=== PATIENT | male | born 1990 | race Caucasian/White ===

== ENCOUNTER 2018-11-04 23:06 | Emergency (ER) | payer BC ==
[~2018-11-04 23:06] MED LIST: Sodium Chloride 0.9% 1,000 ML BAG ONE
[2018-11-04 23:34] LABS: #Basophils 0.1 thou/uL (0.0-0.2); #Eosinphils 0.3 thou/uL (0.0-0.7); #Lymphocytes 2.6 thou/uL (1.20-3.40); #Monocytes 0.7 thou/uL (0.11-0.59); #Neutrophils 4.4 thou/uL (1.40-6.50); %Basophils 0.9 % (0.0-1.0); %Eosinophils 3.5 % (0.0-10.0); %Monocytes 8.8 % (0.0-10.0); %Neutrophils 54.8 % (42.0-75.0); Mean Corpuscular HGB CONC 34.7 g/dL (32.0-36.0); Mean Corpuscular Hemoglobin 31.5 pg (27.0-31.0); Mean Platelet Volume 8.4 fL (7.4-10.4); Platelet Count 192 thou/uL (130-400); RBC Distribution Width 10.8 % (11.5-14.5); Red Blood Cell (RBC) Count 4.77 mill/uL (4.70-6.10)
[2018-11-04] MEDS ORDERED: Morphine 4 MG/ML VIAL ONE (23:34)
[2018-11-04] MEDS ORDERED: Ketorolac Tromethamine 30 MG/ML VIAL ONE (23:34)
[2018-11-04] MEDS ORDERED: Ondansetron PF 4 MG/2 ML Vial ONE (23:34)
[2018-11-04] MEDS ORDERED: Sodium Chloride 0.9% 1,000 ML ONE (23:34)
[2018-11-04 23:50] LABS: Anion Gap 16 mmol/L (10-20); BUN (Urea Nitrogen) 16 mg/dL (8.9-20.6); Calc. Creatinine Clearance 0 mL/min (70-130); Calcium 9.3 mg/dL (7.8-10.44); Carbon Dioxide 24 mmol/L (22-29); Chloride 106 mmol/L (98-107); Estimated GFR-MDRD 68; Glucose 107 mg/dL (70-105); Potassium 3.7 mmol/L (3.5-5.1); Sodium 142 mmol/L (136-145)
--- NOTE | 2018-11-04 23:55 | CT ---
EXAM: Abdomen and pelvic CT scan without contrast: HISTORY: Acute onset left lower abdominal pain COMPARISON: None FINDINGS: The visualized lung bases are clear. Liver: Unremarkable. Gallbladder:Unremarkable. Pancreas:Unremarkable Spleen:Unremarkable. Adrenal glands:Unremarkable. Kidneys:Small nonobstructing bilateral renal calculi. There is dilatation of the left upper renal col lecting system and left ureter down to the level of the bladder with a 0.3 cm calculus which appears to be within the bladder, having recently passed or within the left ureterovesicular junction ..No solid or cystic mass. No evidence for bowel obstruction. No CT evidence for acute appendicitis. The urinary bladder is unremarkable. No abscess, adenopathy, or abnormal fluid collection within the abdomen or pelvis. IMPRESSION: 0.3 cm diameter calculus within the bladder or ureteral vesicular junction. Minimal dilatation of the left upper renal collecting system. Small nonobstructing bilateral renal calculi. Small left fat-containing inguinal hernia.
[2018-11-05 00:14] LABS: Bilirubin Negative (Negative); Blood, Urine Large (Negative); Clarity Clear (Clear); Glucose, Urine (Dipstick) Negative (Negative); Leukocyte Negative (Negative); Nitrite Negative (Negative); Protein, Urine (Dipstick) Negative (Neg-Trace)
[2018-11-05 00:19] LABS: Bacteria/HPF Rare-Few HPF (None Seen); RBC/HPF 21-50 HPF (0-3); Squamous Epithelial 0-3 HPF (0-3); WBC/HPF 0-3 HPF (0-3)
[2018-11-05] MEDS ORDERED: Tamsulosin HCl 0.4 MG CAP ONE (00:27)
[2018-11-05] MEDS ORDERED: HYDROcodone/Acetaminophen 10/325 mg Tablet ONE (00:27)
[2018-11-05] MEDS ORDERED: Acetaminophen 325 MG TAB ONE (00:27)
[2018-11-05] MEDS ORDERED: Morphine 4 MG/ML VIAL ONE (00:29)
== END 2018-11-05 00:45 | disposition home or self-care (01) ==
LOC: MADERS 23:06
DX: N20.2 Calculus of kidney with calculus of ureter (principal); K40.90 Unilateral inguinal hernia, without obstruction or gangrene, not specified as recurrent
CPT/HCPCS: 74176; 80048; 81003; 81015; 85025; 96361; 96374; 96375; J1885; J2270; J2405; J7050

== ENCOUNTER 2022-05-08 01:48 | Emergency (ER) | payer BC, SELFPAY ==
[2022-05-08] MEDS ORDERED: Bacitracin 1 PK ONE (02:57)
== END 2022-05-08 03:18 | disposition home or self-care (01) ==
LOC: MADERS 01:48
DX: T23.201A Burn of second degree of right hand, unspecified site, initial encounter (principal); X19.XXXA Contact with other heat and hot substances, initial encounter
CPT/HCPCS: 99283